=== PATIENT | male | born 1945 | race African-American/Black ===

== ENCOUNTER → 2016-11-13 | Outpatient (CLI) | payer MEDICARE ==
[~2016-11-13] MED LIST: ALDACTONE25 MG PO; AMLODIPINE BESY10 MG PO; ARTIFICIAL TEAR1 DRP OU; ASPIRIN81 MG PO; COUMADIN PO; FUROSEMIDE40 MG PO; GABAPENTIN300 M2 PO; LIPITOR40 MG PO; LOVENOX40 MG/0.4 INJ; METOPROLOL SUCC25 MG PO; NITROGLYGERIN0.4 MG SL; PANTOPRAZOLE SO40 MG PO; PRINIVIL40 MG PO
--- NOTE | ~2016-11-13 | CT137 ---
[facility] A Service of [facility] RADIOLOGY TEXT RESULTS PATIENT: AMOS SWANN LOCATION: [facility] : 41 UNIT #: [id number] AGE: [address]: Rowdy Monsalve MD SEX: M ORDER DR: [id number] [id number] [facility]. [place], [place] [address] [id number] O MR#: [id number] [facility] #: [id number] NAME: AMOS SWANN : 1945 SEX: M STUDY DATE/TIME: 11/13/2016 8:31 UNIT: [facility] ROOM: STUDY DESCRIPTION: CT Lung Screening annual Attending Physician: Rowdy Monsalve M.D. Referring Physician: Rowdy Monsalve M.D. Ordering Physician: Rowdy Monsalve M.D. Primary Care Physician: Rowdy Monsalve M.D. MEDICAL IMAGING REPORT This report is preliminary unless electronic signature is present EXAM CT lung cancer screening INDICATIONS Lung cancer screening. 55 pack year smoking history. PROCEDURE Unenhanced low-dose CT of the chest performed per lung cancer screening protocol. CTDI 2.6 mGy, total DLP 103 mGy-cm. This CT exam was performed with one or more of the following radiation dose reduction techniques: automatic exposure control, adjustment of mA and/or kV according to patient size, and iterative reconstruction. COMPARISON STUDIES Comparison CT from the 04/07/2007 FINDINGS No suspicious pulmonary nodule. No adenopathy in the chest. Heavy coronary artery calcification. No acute findings in the included upper abdomen. 4.5 cm, likely sebaceous cyst, midline back. No aggressive appearing bone lesion. IMPRESSION 1. No suspicious pulmonary nodule. 2. Heavy coronary artery calcification. 3. Lung-RADS category 1 negative. Per ACR Lung-RADS recommendation suggest patient continue with annual low-dose lung cancer screening. Dictated by... Galileo Cesar M.D. THIS IS AN ELECTRONICALLY VERIFIED REPORT [facility] A Service [facility] RADIOLOGY TEXT RESULTS PATIENT: AMOS SWANN LOCATION: [facility] #: [id number] : 41 UNIT #: [id number] AGE: [address]: Rowdy Monsalve MD SEX: M ORDER DR: Galileo Cesar M.D. at 11/14/2016 8:27 AM Juan TD: 11/13/2016 15:46 JOB #: [id number] MEDICAL IMAGING REPORT Page 1 of 1 COPY
== END | disposition home or self-care (01) ==
LOC: CCAT 07:57
DX: Z87.891 Personal history of nicotine dependence (principal)
CPT/HCPCS: G0297